=== PATIENT | male | born 1945 | race African-American/Black ===

== ENCOUNTER 2016-10-18 08:14 | Inpatient (IN) | payer OTHER, MEDICARE ==
[2016-10-18] VITALS (14 sets, daily range): BP systolic 125–193; BP diastolic 85–117; PULSE 61–112; RESP 17–36; TEMP 97.7–98.7; O2SAT 92–100
[~2016-10-18] VITALS: Ht 172.7 cm; Wt 72.0 kg
[~2016-10-18 08:14] MED LIST: ALBU8I INH; ASPI325T PO; CARV3.125 PO; FURO20 PO; KCL10C PO; LISI-360 PO; LISI10 PO; POTA-243 PO; PRAV20 PO; PRAV40 PO
[2016-10-18] MEDS ORDERED: SODIUM CHLOR 0.9% 1000 ML INJ 1,000 ML IV ONE (08:45)
[2016-10-18] MEDS ORDERED: methylPREDNISolone SOD SUCC 125 MG/2 ML VIAL IVP ONE (08:45)
--- NOTE | 2016-10-18 08:56 | PD ---
HPI Chief Complaint: Respiratory Distress Time Seen by Provider: 08:27 Travel History International Travel<30 days: No Contact w/Intl Traveler<30days: No Traveled to known affect area: No History of Present Illness HPI Patient is a 71-year-old male with history of COPD, Cardiomyopathy with ER 35% and hx of CHF, presents to emergency room with complaints of shortness of breath. Patient reports that he has been having increased shortness of breath for the past 2 days, reports that he has been coughing, reports that he is bringing up thick productive sputum. Reports that he has had increased nasal congestion with postnasal drip, reports that symptoms have been getting worse and patient felt as if he could not breathe this morning. Patient reports no fevers or chills. Denies chest pain at this time. Reports that he was a past smoker, reports "I quit smoking 2 days ago." PFSH Past Medical History Arthritis: Yes (KNEES, FINGERS) Heart Rhythm Problems: Yes (SOMETIMES FEELS "HEART RACING") Cardiovascular Problems: Yes COPD: Yes (HX SMOKER) Cerebrovascular Accident: Yes Diminished Hearing: No Hypertension: Yes Respiratory: Yes (COPD) Seizures: No Past Surgical History Abdominal Surgery: Yes ( Hernia repair - 2006) Neurologic Surgery: No Other Surgery: Yes Social History Alcohol Use: No Tobacco Use: No Substance Use: Yes (cocanie ) Allergies-Medications (Allergen,Severity, Reaction): Coded Allergies: No Known Allergies (Verified , 10/18/16) Reported Meds & Prescriptions Reported Meds & Active Scripts Active Lasix 20 Mg Tab (Furosemide) 20 Mg Tab 20 Mg PO DAILY 30 Days KCl 10 Meq Cap (Potassium Chloride) 10 Meq Capcr 10 Meq PO DAILY 30 Days Prinivil 10 mg (Lisinopril) 10 Mg Tab 10 Mg PO DAILY 30 Days Coreg 3.125 mg (Carvedilol) 3.125 Mg Tab 3.125 Mg PO Q12HR Pravastatin Sodium 40 Mg Tab 40 Mg PO HS Aspirin 325 Mg Tab (Aspirin) 325 Mg Tab 325 Mg PO DAILY Ventolin Hfa (Albuterol Sulfate) 8 Gm Aero 2 Puff INH Q4 PRN * SHAKE WELL BEFORE USE * Review of Systems General / Constitutional: No: Fever Eyes: No: Visual changes HENT: No: Headaches Cardiovascular: No: Chest Pain or Discomfort, Palpitations, Irregular Rhythm Respiratory: Positive: Cough, Shortness of Breath, Wheezing Gastrointestinal: No: Abdominal Pain Genitourinary: No: Dysuria Musculoskeletal: No: Pain Skin: No Rash Neurologic: No: Weakness Psychiatric: No: Depression Endocrine: No: Polydipsia Hematologic/Lymphatic: No: Easy Bruising Physical Exam Narrative GENERAL: mild distress SKIN: Warm and dry. HEAD: Atraumatic. Normocephalic. EYES: Pupils equal and round. No scleral icterus. No injection or drainage. ENT: No nasal bleeding or discharge. Mucous membranes pink and moist. NECK: Trachea midline. No JVD. CARDIOVASCULAR: tachycardic. No murmur appreciated. RESPIRATORY: patient with scattered wheezing b/l GASTROINTESTINAL: Abdomen soft, non-tender, nondistended. Hepatic and splenic margins not palpable. MUSCULOSKELETAL: No obvious deformities. No clubbing. No cyanosis. No edema. NEUROLOGICAL: Awake and alert. Normal speech. PSYCHIATRIC: Appropriate mood and affect; insight and judgment normal. Data Data Last Documented VS Vital Signs Date Time Temp Pulse Resp B/P Pulse Ox O2 Delivery O2 Flow Rate FiO2 10/18/16 09:53 96 Nasal Cannula 2.00 10/18/16 09:05 22 10/18/16 08:18 97.7 112 193/117 Orders Complete Blood Count With Diff (10/18/16 08:32) Comprehensive Metabolic Panel (10/18/16 08:32) B-Type Natriuretic Peptide (10/18/16 08:32) Act Partial Throm Time (Ptt) (10/18/16 08:32) Prothrombin Time / Inr (Pt) (10/18/16 08:32) Magnesium (Mg) (10/18/16 08:32) Ckmb (Isoenzyme) Profile (10/18/16 08:32) Troponin I (10/18/16 08:32) Urinalysis - C+S If Indicated (10/18/16 08:32) Influenzae A/B Antigen (10/18/16 08:32) Blood Culture (10/18/16 08:32) Iv Access Insert/Monitor (10/18/16 08:32) Ecg Monitoring (10/18/16 08:32) Oximetry (10/18/16 08:32) Chest, Single Ap (10/18/16 08:32) Sodium Chloride 0.9% Flush (Ns Flush) (10/18/16 08:45) Methylprednisolone So Succ Inj (Solumedr (10/18/16 08:45) Albuterol-Ipratropium Neb (Duoneb Neb) (10/18/16 08:45) Sodium Chlor 0.9% 1000 Ml Inj (Ns 1000 M (10/18/16 08:45) Lactic Acid Sepsis Protocol (10/18/16 08:56) CKMB (10/18/16 08:55) CKMB% (10/18/16 08:55) Azithromycin Inj (Zithromax Inj) (10/18/16 10:15) Ceftriaxone Inj (Rocephin Inj) (10/18/16 10:15) Aspirin (Aspirin) (10/18/16 10:15) Hydralazine Inj (Apresoline Inj) (10/18/16 10:45) Admit Order (Ed Use Only) (10/18/16 10:41) Inpatient Certification (10/18/16 ) Labs Laboratory Tests Test 10/18/16 10/18/16 10/18/16 08:55 09:05 09:53 White Blood Count 4.3 TH/MM3 Red Blood Count 4.68 MIL/MM3 Hemoglobin 15.4 GM/DL Hematocrit 45.8 % Mean Corpuscular Volume 97.8 FL Mean Corpuscular Hemoglobin 32.9 PG Mean Corpuscular Hemoglobin 33.7 % Concent Red Cell Distribution Width 14.4 % Platelet Count 210 TH/MM3 Mean Platelet Volume 11.2 FL Neutrophils (%) (Auto) 66.2 % Lymphocytes (%) (Auto) 25.5 % Monocytes (%) (Auto) 7.1 % Eosinophils (%) (Auto) 0.4 % Basophils (%) (Auto) 0.8 % Neutrophils # (Auto) 2.8 TH/MM3 Lymphocytes # (Auto) 1.1 TH/MM3 Monocytes # (Auto) 0.3 TH/MM3 Eosinophils # (Auto) 0.0 TH/MM3 Basophils # (Auto) 0.0 TH/MM3 CBC Comment AUTO DIFF Differential Comment AUTO DIFF CONFIRMED Platelet Estimate NORMAL Platelet Morphology Comment CLUMPED Sodium Level 140 MEQ/L Potassium Level 5.4 MEQ/L Chloride Level 103 MEQ/L Carbon Dioxide Level 27.6 MEQ/L Anion Gap 9 MEQ/L Blood Urea Nitrogen 13 MG/DL Creatinine 1.27 MG/DL Estimat Glomerular Filtration 68 ML/MIN Rate Random Glucose 107 MG/DL Calcium Level 8.9 MG/DL Magnesium Level 2.3 MG/DL Total Bilirubin 1.0 MG/DL Aspartate Amino Transf 184 U/L (AST/SGOT) Alanine Aminotransferase 198 U/L (ALT/SGPT) Alkaline Phosphatase 123 U/L Total Creatine Kinase 199 U/L Creatine Kinase MB 5.0 NG/ML Troponin I 0.11 NG/ML B-Type Natriuretic Peptide 2456 PG/ML Total Protein 7.7 GM/DL Albumin 3.5 GM/DL Lactic Acid Level 2.2 mmol/L Prothrombin Time 12.8 SEC Prothromb Time International 1.2 RATIO Ratio Activated Partial 29.9 SEC Thromboplast Time MDM Medical Decision Making Medical Screen Exam Complete: Yes Emergency Medical Condition: Yes Interpretation(s) EKG at 0831: Normal sinus rhythm at 80 beats for minute, QT/QTc 422/467, right bundle branch block, LVH, EKG unchanged when compared to March 02, 2016 Vital Signs Date Time Temp Pulse Resp B/P Pulse Ox O2 Delivery O2 Flow Rate FiO2 10/18/16 08:26 95 10/18/16 08:18 97.7 112 36 193/117 92 Room Air Differential Diagnosis Pneumonia, influenza, COPD exacerbation, electrolyte abnormality, PE Narrative Course Patient is a 71-year-old male with history of COPD exacerbation, presents to emergency room with complaints of shortness of breath and wheezing for the past 2 days. Patient reports that he stopped smoking 2 days ago, that he has been wheezing coughing and has had a productive cough for the past 2 days. Patient reports that he feel short of breath and cannot breathe at this time. Patient wheezing on exam, patient does have SIRS criteria as he is tachycardic with increased respiratory rate. Blood cultures ordered, nebs as well as albuterol treatments ordered. Laboratory Tests Test 10/18/16 10/18/16 08:55 09:05 White Blood Count 4.3 TH/MM3 (4.0-11.0) Red Blood Count 4.68 MIL/MM3 (4.50-5.90) Hemoglobin 15.4 GM/DL (13.0-17.0) Hematocrit 45.8 % (39.0-51.0) Mean Corpuscular Volume 97.8 FL (80.0-100.0) Mean Corpuscular Hemoglobin 32.9 PG (27.0-34.0) Mean Corpuscular Hemoglobin 33.7 % Concent (32.0-36.0) Red Cell Distribution Width 14.4 % (11.6-17.2) Platelet Count 210 TH/MM3 (150-450) Mean Platelet Volume 11.2 FL (7.0-11.0) Neutrophils (%) (Auto) 66.2 % (16.0-70.0) Lymphocytes (%) (Auto) 25.5 % (9.0-44.0) Monocytes (%) (Auto) 7.1 % (0.0-8.0) Eosinophils (%) (Auto) 0.4 % (0.0-4.0) Basophils (%) (Auto) 0.8 % (0.0-2.0) Neutrophils # (Auto) 2.8 TH/MM3 (1.8-7.7) Lymphocytes # (Auto) 1.1 TH/MM3 (1.0-4.8) Monocytes # (Auto) 0.3 TH/MM3 (0-0.9) Eosinophils # (Auto) 0.0 TH/MM3 (0-0.4) Basophils # (Auto) 0.0 TH/MM3 (0-0.2) CBC Comment AUTO DIFF Differential Comment AUTO DIFF CONFIRMED Platelet Estimate NORMAL (NORMAL) Platelet Morphology Comment CLUMPED (NORMAL) Sodium Level 140 MEQ/L (136-145) Potassium Level 5.4 MEQ/L (3.5-5.1) Chloride Level 103 MEQ/L (98-107) Carbon Dioxide Level 27.6 MEQ/L (21.0-32.0) Anion Gap 9 MEQ/L (5-15) Blood Urea Nitrogen 13 MG/DL (7-18) Creatinine 1.27 MG/DL (0.60-1.30) Estimat Glomerular Filtration 68 ML/MIN (>89) Rate Random Glucose 107 MG/DL (74-106) Calcium Level 8.9 MG/DL (8.5-10.1) Magnesium Level 2.3 MG/DL (1.5-2.5) Total Bilirubin 1.0 MG/DL (0.2-1.0) Aspartate Amino Transf 184 U/L (15-37) (AST/SGOT) Alanine Aminotransferase 198 U/L (12-78) (ALT/SGPT) Alkaline Phosphatase 123 U/L (45-117) Total Creatine Kinase 199 U/L (39-308) Creatine Kinase MB 5.0 NG/ML (0.5-3.6) Troponin I 0.11 NG/ML (0.02-0.05) B-Type Natriuretic Peptide 2456 PG/ML (0-100) Total Protein 7.7 GM/DL (6.4-8.2) Albumin 3.5 GM/DL (3.4-5.0) Lactic Acid Level 2.2 mmol/L (0.4-2.0) Patient reevaluated, patient reports that he is feeling much better after neb is given to him. CBC White blood cell 4.3, hemoglobin 15.4 hematocrit 45.8, platelets 210 lactic acid 2.2 chest xray: no infiltrates trop 0.11- patient with no chest pain at this time, EKG comparable to previous EKGs in the past. Will give patient asa and order serial trops case reviewed with dr salmon who accepts pt to service pt's belt builder is Dr. Munoz case reviewed with dr. sevilla who saw patient in consult pt began to become sob and diaphoretic, bipap placed, nitro paste placed call made to dr. salmon who request ICU admission and admission to [facility] spa manager case reviewed with dr raymond who accepts pt to service pt re-evaluated after being on bipap - reports that he is feeling much better on bipap and sob improving Critical Care Narrative Aggregate critical care time was 45 minutes. Time to perform other separately billable procedures was not included in the critical care time. My time did not include minutes spent treating any other patients simultaneously or on activities that did not directly contribute to the patient's treatment. The services I provided to this patient were to treat and/or prevent clinically significant deterioration that could result in: , decompensation, deterioration I provided critical care services requiring my management, as noted below: Chart data review, documentation time, medication orders and management, vital sign assessments/reviewing monitor data, ordering and reviewing lab tests, ordering and interpreting/reviewing x-rays and diagnostic studies, care of the patient and discussion of the patient with the admitting physicians. Diagnosis Primary Impression: SIRS (systemic inflammatory response syndrome) Additional Impressions: COPD exacerbation Positive Troponin CHF (congestive heart failure) Admitting Information Admitting Physician Requests: Admit Jodi Somers DO Oct 18, 2016 08:56
--- NOTE | 2016-10-18 09:08 | RADRPT ---
EXAM DATE/TIME: 10/18/2016 08:40 [facility] COMPARISON: CHEST PA & LAT, December 05, 2013, 12:32. CHEST SINGLE AP, March 02, 2016, 9:11. INDICATIONS : Shortness of breath for two days. MEDICAL HISTORY : Emphysema. SURGICAL HISTORY : None. ENCOUNTER: Initial ACUITY: 2 days PAIN SCORE: 0/10 LOCATION: Bilateral chest FINDINGS: The heart size is enlarged. There some minimal suspected atelectasis at the bases. The mid and upper lungs are clear. The lungs appear hyperinflated. No effusion is seen. There is a dextrocurvature of t he thoracic spine. CONCLUSION: Hyperinflated lungs with some suspected atelectasis at the bases. The heart size is enlarged. John Trevino MD on October 18, 2016 at 9:05 Board Certified Radiologist. This report was verified electronically.
[2016-10-18] MEDS: SODIUM CHLORIDE 0.9% FLUSH 5 ML FLUSH IVF PRN (09:11)
[2016-10-18 09:33] LABS: AUTOMATED NEUTROPHIL # 2.8 TH/MM3 (1.8-7.7); BASOPHIL % 0.8 % (0.0-2.0); EOSINOPHIL % 0.4 % (0.0-4.0); HEMATOCRIT 45.8 % (39.0-51.0); LYMPH % 25.5 % (9.0-44.0); LYMPHOCYTE # 1.1 TH/MM3 (1.0-4.8); MEAN CELL VOLUME 97.8 FL (80.0-100.0); MEAN CORPUSCULAR HEMOGLOBIN 32.9 PG (27.0-34.0); MEAN CORPUSCULAR HGB CONC 33.7 % (32.0-36.0); MONO % 7.1 % (0.0-8.0); NEUT % 66.2 % (16.0-70.0); PLATELET COUNT 210 TH/MM3 (150-450); RED BLOOD COUNT 4.68 MIL/MM3 (4.50-5.90); RED CELL DISTRIBUTION WIDTH 14.4 % (11.6-17.2); WHITE BLOOD COUNT 4.3 TH/MM3 (4.0-11.0)
[2016-10-18 09:34] LABS: HEMO FLAGS AUTO DIFF
[2016-10-18 09:52] LABS: ANION GAP 9 MEQ/L (5-15)
[2016-10-18] MEDS: RESP: ALBUTEROL 2.5 MG/IPRATROPIUM 0.5 MG NEB (SCH) INH ×4 (09:53→23:43)
[2016-10-18 09:54] LABS: ALKALINE PHOSPHATASE 123 U/L (45-117); ALT (GPT) 198 U/L (12-78); AST (GOT) 184 U/L (15-37); BICARBONATE 27.6 MEQ/L (21.0-32.0); BLOOD UREA NITROGEN 13 MG/DL (7-18); CHLORIDE 103 MEQ/L (98-107); CREATINE KINASE 199 U/L (39-308); GLOMERULAR FILTRATION RATE 68 ML/MIN (>89); MAGNESIUM 2.3 MG/DL (1.5-2.5); SODIUM (NA) 140 MEQ/L (136-145)
[2016-10-18 09:55] LABS: POTASSIUM 5.4 MEQ/L (3.5-5.1)
[2016-10-18 10:05] LABS: PLATELET ESTIMATE SMEAR NORMAL (NORMAL); PLATELET MORPHOLOGY CLUMPED (NORMAL); SCAN/DIFF AUTO DIFF CONFIRMED
[2016-10-18] MEDS ORDERED: cefTRIAXone INJ 1,000 MG in SODIUM CHLORIDE 0.9% INJ 100 ML IV ONE (10:15)
[2016-10-18] MEDS ORDERED: ASPIRIN 325 MG TAB PO ONE (10:15)
[2016-10-18] MEDS ORDERED: AZITHROMYCIN INJ 500 MG in SODIUM CHLOR 0.9% 250 ML INJ 250 ML IV ONE (10:15)
[2016-10-18 10:25] LABS: APTT (PATIENT) 29.9 SEC (24.3-30.1); INTERNATIONAL NORMALIZED RATIO 1.2 RATIO; PROTHROMBIN TIME - PATIENT 12.8 SEC (9.8-11.6)
[2016-10-18] MEDS ORDERED: hydrALAZINE HCL 20 MG/ML VIAL IV PUSH ONE (10:45)
[2016-10-18 11:23] LABS: BLOOD, URINE NEG (NEG); COMMENT (UR) CULT NOT INDICATED; CULTURE IF INDICATED CULT NOT INDICATED; GLUCOSE,URINE NEG (NEG); KETONE, URINE NEG (NEG); MUCUS URINE FEW /lpf (OCC); NITRITE,URINE NEG (NEG); PH, URINE 5.5 (5.0-8.5); URINE COLOR YELLOW (YELLW/STRAW)
[2016-10-18 11:24] LABS: LACTIC ACID GHOST NOT REPORTABLE
[2016-10-18] MEDS ORDERED: NITROGLYCERIN 2% OINT 1 GM PACKET TOP ONE (11:30)
[2016-10-18] MEDS ORDERED: FUROSEMIDE 40 MG/4 ML VIAL IV PUSH ONE (11:30)
[2016-10-18] MEDS ORDERED: POTASSIUM CHLOR 40 MEQ PREMIX 100 ML IV PRN ×2 (12:15)
[2016-10-18] MEDS ORDERED: MAGNESIUM SULFATE INJ 4 GM in SODIUM CHLORIDE 0.9% INJ 92 ML IV PRN (12:15)
[2016-10-18] MEDS ORDERED: DEXTROSE 50% IN WATER 50 ML VIAL(D50) IV PUSH PRN (12:15)
[2016-10-18] MEDS ORDERED: LABETALOL HCL 100 MG/20 ML VIAL IV PUSH PRN (12:15)
[2016-10-18] MEDS ORDERED: POTASSIUM CHLOR 20 MEQ PREMIX 100 ML IV PRN ×2 (12:15)
[2016-10-18] MEDS ORDERED: MAGNESIUM SULFATE INJ 2 GM in SODIUM CHLORIDE 0.9% INJ 96 ML IV PRN (12:15)
[2016-10-18] MEDS ORDERED: hydrALAZINE HCL 20 MG/ML VIAL IV PUSH PRN (12:15)
[2016-10-18] MEDS ORDERED: FUROSEMIDE 100 MG/10 ML VIAL IV PUSH ONE (12:15)
[2016-10-18] MEDS ORDERED: SODIUM PHOSPHATE INJ 30 MMOL in SODIUM CHLOR 0.9% 250 ML INJ 240 ML IV PRN (12:15)
[2016-10-18] MEDS ORDERED: MAGNESIUM OXIDE 400 MG TAB PO PRN (12:15)
[2016-10-18] MEDS ORDERED: POTASSIUM PHOSPHATE MONOBASIC 500 MG TAB PO/TUBE PRN (12:15)
[2016-10-18] MEDS ORDERED: POTASSIUM PHOSPHATE MONOBASIC 500 MG TAB PO PRN (12:15)
[2016-10-18] MEDS ORDERED: RESP: ALBUTEROL 2.5 MG/IPRATROPIUM 0.5 MG NEB (PRN) INH (12:15)
[2016-10-18] MEDS ORDERED: POTASSIUM PHOSPHATE INJ 30 MMOL in SODIUM CHLOR 0.9% 250 ML INJ 250 ML IV PRN (12:15)
[2016-10-18 12:36] LABS: BLOOD GAS BASE EXCESS -1.5 mmol/L (-2-2); BLOOD GAS CARBOXYHEMOGLOBIN 1.5 % (0-4); BLOOD GAS HCO3 22 mmol/L (22-26); BLOOD GAS METHEMOGLOBIN 0.5 % (0-2); BLOOD GAS O2 HGB SATURATION 97 % (90-100); BLOOD GAS OXYGEN CONTENT 20.6 Vol % (12.0-20.0); BLOOD GAS PCO2 32 mmHg (38-42); BLOOD GAS PO2 147 mmHG (61-120); BLOOD GAS TOTAL HGB 14.9 G/DL (12.0-16.0); CRITICAL VALUE NO; DRAW SITE RT RADIAL; FIO2 40 %; NUMBER OF ARTERIAL PUNCTURES 1; OXYGEN DEVICE BiPAP; STAT YES; TEMP CORR TO 98.6; ULNAR PULSE PRESENT; VENT SETTINGS IPAP15/EPAP5
--- NOTE | 2016-10-18 12:36 | MB ---
cc: HEBER LUNA MD DATE OF CONSULTATION: 10/18/2016 REASON FOR CONSULTATION: CHF. HISTORY OF PRESENT ILLNESS The patient is a pleasant though troubled 71 year-old gentleman who I had previously seen though he was terminated from my practice due to noncompliance and continued drug use. The patient presents again after using cocaine on Wednesday and has been acutely short of breath since yesterday. He denies any chest pain, lightheadedness, dizziness. PAST MEDICAL HISTORY: 1. Drug abuse 2. Nonischemic cardiomyopathy with ejection fraction from last December in the 30s with no evidence of ischemia. 3. Ventricular tachycardia. 4. COPD. 5. Atrial fibrillation. 6. Noncompliance. CURRENT MEDICATIONS: IV Lasix ALLERGIES: NO KNOWN DRUG ALLERGIES. PHYSICAL EXAMINATION VITAL SIGNS: Afebrile, pulse 104, respiratory rate 20, blood pressure 193/117, sating 94 on two liters. General: -Turkmen gentleman who is in moderate respiratory distress. Neck: Elevated JVD. Lungs: Wheezes in all [place]. Cardiovascular: Regular rate and rhythm, no murmurs appreciated. Abdomen: Benign. Extremities: No edema. EKG shows sinus tachycardia with LVH changes, left axis deviation and right bundle-branch block. LABORATORY DATA Notable for BNP is 2456, elevated AST, ALT, troponin is 0.11, potassium of 5.4, creatinine 1.27, white count 4.3. IMPRESSION Diastolic heart failure. The patient has acute on chronic systolic and diastolic heart failure exacerbated by his recent cocaine use. He has been given Lasix after initial fluid bolus in the emergency department before his clinical condition was clear. Nitrates were also given. He may require intubation. He is currently on BiPAP. PLAN: Current plan will be based on his clinical course but his prognosis is extremely guarded based on his prior events and low ejection fraction. Thank you again for the opportunity to participate in this patient's care. Heber Luna MD [facility]/[place] /10:33 AM /11:27 AM
--- NOTE | 2016-10-18 12:39 | HHI.HP ---
[facility] Service Critical Care Medicine Primary Care Physician Non-Staff Admission Diagnosis SIRS, NSTEMI Diagnosis: Chief Complaint: shortness of breath Travel History International Travel<30 Days: No Contact w/Intl Traveler <30 Da: No Traveled to Known Affected Are: No History of Present Illness 71yM with history of ischemic cardiomyopathy and an EF of 30-35% who has been repeatedly admitted to [facility] before for CHF exacerbation presents with a few weeks of progressively worsening shortness of breath. He denies fever, chills, chest pain, nausea, vomiting, diarrhea. He is quite dyspneic and currently on BiPAP, so a complete history is unobtainable. He was lost to follow-up after his last CHF exacerbation and does not have repeat echo for possible AICD work-up. Work-up in the ED include Cr. 1.2, Lactate 2.2, AST/ALT 184/198, Trop 0.11, BNP 2456, wbc 4.3, hgb 15. He received 1 L fluid bolus for early concern for possible sepsis. Critical care medicine is consulted to evaluate and manage his Type II respiratory failure and respiratory distress. Review of Systems ROS Limitations: Clinical Condition Constitutional: COMPLAINS OF: Weight gain, DENIES: Fatigue, Fever, Chills Respiratory: COMPLAINS OF: Shortness of breath, DENIES: Cough, Wheezing, Sputum production Cardiovascular: COMPLAINS OF: Dyspnea on Exertion, Lower Extremity Edema, DENIES: Chest pain, Syncope Gastrointestinal: DENIES: Abdominal pain, Constipation, Diarrhea, Nausea, Vomiting ROS patient extremely dyspneic on BiPAP. Past Family Social History Allergies: Coded Allergies: No Known Allergies (Verified , 10/18/16) Past Medical History Arthritis Ischemic Cardiomyopathy, EF 30-35%. COPD CVA Past Surgical History Hernia repair 2006 Reported Medications Pravastatin Sodium 20 Mg Tab 40 Mg PO DAILY 30 Days Coreg 3.125 mg (Carvedilol) 3.125 Mg Tab 1 Tab PO BID Aspirin 325 Mg Tab (Aspirin) 325 Mg Tab 325 Mg PO DAILY 30 Days Lisinopril 10 mg (Lisinopril) 10 Mg Tab 1 Tab PO DAILY 30 Days Lasix 20 Mg Tab (Furosemide) 20 Mg Tab 20 Mg PO DAILY 30 Days KCl 10 Meq Cap (Potassium Chloride) 10 Meq Capcr 10 Meq PO DAILY 30 Days K-Dur (Potassium Chloride) 10 Meq Tabcr 10 Meq PO DAILY 30 Days Prinivil 10 mg (Lisinopril) 10 Mg Tab 10 Mg PO DAILY 30 Days Lasix 20 Mg Tab (Furosemide) 20 Mg Tab 20 Mg PO DAILY 30 Days Coreg 3.125 mg (Carvedilol) 3.125 Mg Tab 3.125 Mg PO Q12HR Pravastatin Sodium 40 Mg Tab 40 Mg PO HS Aspirin 325 Mg Tab (Aspirin) 325 Mg Tab 325 Mg PO DAILY Ventolin Hfa (Albuterol Sulfate) 8 Gm Aero 2 Puff INH Q4 PRN Active Ordered Medications See MAR Family History Reviewed and found to be noncontributory to his acute illness. Social History prior smoking history. cocaine use. denies etoh. Physical Exam Vital Signs Vital Signs Date Time Temp Pulse Resp B/P Pulse Ox O2 Delivery O2 Flow Rate FiO2 10/18/16 11:33 22 97 BiPAP 40 10/18/16 11:30 98 40 10/18/16 10:51 104 26 183/117 94 Nasal Cannula 2 10/18/16 09:53 96 Nasal Cannula 2.00 10/18/16 09:05 94 Room Air 10/18/16 09:05 22 94 Room Air 10/18/16 08:26 95 10/18/16 08:18 97.7 112 36 193/117 92 Room Air Physical Exam gen: elderly male, lying in bed, moderate respiratory distress. heent: nc. at. perrl. mucous membranes moist. neck: +jvd. trachea midline. bipap in place. chest: labored respirations. decreased air movement. crackles at bilateral bases. no wheezing. cv: normal rate, regular rhythm. NSR by tele. no appreciable murmurs abd: soft, nontender, nondistended. no guarding. extr: 2+ pitting edema. distal pulses 2+ neuro: RASS 0. cam -. alert and oriented. no gross focal motor/sensory deficits. Laboratory Laboratory Tests Test 10/18/16 10/18/16 10/18/16 10/18/16 08:55 09:05 09:53 11:00 White Blood Count 4.3 Red Blood Count 4.68 Hemoglobin 15.4 Hematocrit 45.8 Mean Corpuscular Volume 97.8 Mean Corpuscular Hemoglobin 32.9 Mean Corpuscular Hemoglobin 33.7 Concent Red Cell Distribution Width 14.4 Platelet Count 210 Mean Platelet Volume 11.2 Neutrophils (%) (Auto) 66.2 Lymphocytes (%) (Auto) 25.5 Monocytes (%) (Auto) 7.1 Eosinophils (%) (Auto) 0.4 Basophils (%) (Auto) 0.8 Neutrophils # (Auto) 2.8 Lymphocytes # (Auto) 1.1 Monocytes # (Auto) 0.3 Eosinophils # (Auto) 0.0 Basophils # (Auto) 0.0 CBC Comment AUTO DIFF Differential Comment AUTO DIFF CONFIRMED Platelet Estimate NORMAL Platelet Morphology Comment CLUMPED Sodium Level 140 Potassium Level 5.4 Chloride Level 103 Carbon Dioxide Level 27.6 Anion Gap 9 Blood Urea Nitrogen 13 Creatinine 1.27 Estimat Glomerular Filtration 68 Rate Random Glucose 107 Calcium Level 8.9 Magnesium Level 2.3 Total Bilirubin 1.0 Aspartate Amino Transf 184 (AST/SGOT) Alanine Aminotransferase 198 (ALT/SGPT) Alkaline Phosphatase 123 Total Creatine Kinase 199 Creatine Kinase MB 5.0 Troponin I 0.11 B-Type Natriuretic Peptide 2456 Total Protein 7.7 Albumin 3.5 Lactic Acid Level 2.2 Prothrombin Time 12.8 Prothromb Time International 1.2 Ratio Activated Partial 29.9 Thromboplast Time Urine Color YELLOW Urine Turbidity CLEAR Urine pH 5.5 Urine Specific [place] 1.020 Urine Protein 30 Urine Glucose (UA) NEG Urine Ketones NEG Urine Occult Blood NEG Urine Nitrite NEG Urine Bilirubin NEG Urine Urobilinogen LESS THAN 2.0 Urine Leukocyte Esterase NEG Urine RBC LESS THAN 1 Urine WBC 1 Urine Mucus FEW Microscopic Urinalysis Comment CULT NOT INDICATED Date/Time Procedure Status Source Growth 10/18/16 09:00 Aerobic Blood Culture Received Blood Peripheral Pending 10/18/16 09:00 Anaerobic Blood Culture Received Blood Peripheral Pending 10/18/16 08:55 Influenza Types A,B Antigen (JACY) - Final Complete Nasal Aspirate NEGATIVE FOR FLU A AND B ANTIGEN.... Result Diagram: 10/18/1685410/18/16 0855 Assessment and Plan Assessment and Plan Assessment: 71yM with known ICM EF 30-35% now with respiratory distress and CHF exacerbation. I think his lactate and transaminitis are reflective of congestive hepatopathy and early cardiogenic shock and are not related to sepsis. We will not cover him empirically with antibiotics. We will pursue forced diuresis with goal of net - 2-3L over next 24h. Continue biPAP to attempt to avoid intubation for hypoxic respiratory failure. I do think it is reasonable to reconsult cardiology with a recent echocardiogram so they may complete work-up for possible AICD placement, since he was lost to follow-up on prior admission. Plan: 1. Hypoxic Respiratory Failure -- BiPAP -- wean fio2 for goal spo2 > 90% -- hob at 30 degrees -- aggressive pulmonary toilet. 2. Systolic CHF exacerbation -- Lasix 80mg iv x 1 now -- Lasix 40mg iv BID -- goal net negative 2-3L over the next 24h -- repeat 2d echo -- consult cardiology to eval for AICD placement 3. Hypertension -- restart home carvedilol -- hold home lisinopril given bump in Cr. if normalizes tomorrow, would plan to restart -- prn hydralazine, labetalol for goal sbp < 160 4. COPD -- home inhalers -- I do not think this is a copd exacerbation, so we will not pursue steroids 5. Lactic acidosis -- likely early congestive hepatopathy and cardiogenic shock. after diuresis, will recheck 6. Elevated LFTs -- likely early congestive hepatopathy. recheck in AM. 7. Hyperlipidemia -- restart statin 8. SCDs and Lovenox for DVT prophylaxis. 9. No indication for GI prophylaxis at this time. Dispo: admit to the ICU. If he diuresis appropriately, would consider downgrading to floor status with hospitalist following. Code Status Full Code Alberto Palomares MD Oct 18, 2016 12:39
[2016-10-18] MEDS ORDERED: CARVEDILOL 3.125 MG TAB PO SCH (13:00)
[2016-10-18] MEDS ORDERED: CARV3.125 PO (13:27)
[2016-10-18] MEDS ORDERED: LISI10TA3 PO (13:27)
[2016-10-18] MEDS ORDERED: ALBUAER3 INH (13:27)
[2016-10-18] MEDS ORDERED: K-TA10TA PO (13:27)
[2016-10-18] MEDS ORDERED: FURO1TAB62 PO (13:27)
[2016-10-18] MEDS ORDERED: ASPI325T PO (13:27)
[2016-10-18] MEDS: ENOXAPARIN SODIUM 40 MG/0.4 ML SYRINGE SQ SCH (13:48)
[2016-10-18 17:57] LABS: MAGNESIUM 2.1 MG/DL (1.5-2.5)
[2016-10-18 17:58] LABS: POTASSIUM 4.6 MEQ/L (3.5-5.1)
[2016-10-18] MEDS: FUROSEMIDE 40 MG/4 ML VIAL IV PUSH SCH (19:03)
[2016-10-18] MEDS: INSULIN NovoLIN REGULAR SUPPLEMENTAL SCALE SQ SCH (19:04)
[2016-10-18] MEDS ORDERED: PRAVASTATIN SOD 40 MG TAB PO SCH (21:00)
[2016-10-18] MEDS: CARVEDILOL 3.125 MG TAB PO SCH (21:02)
[2016-10-19] VITALS (16 sets, daily range): BP systolic 120–141; BP diastolic 63–82; PULSE 53–91; RESP 16–26; TEMP 97.3–98.3; O2SAT 92–100
[2016-10-19] MEDS: INSULIN NovoLIN REGULAR SUPPLEMENTAL SCALE SQ SCH ×5 (00:21→23:18)
[2016-10-19] MEDS: RESP: ALBUTEROL 2.5 MG/IPRATROPIUM 0.5 MG NEB (SCH) INH ×6 (03:27→23:23)
--- NOTE | 2016-10-19 04:13 | RADRPT ---
EXAM DATE/TIME: 10/19/2016 01:47 [facility] COMPARISON: CHEST SINGLE AP, October 18, 2016, 8:40. INDICATIONS : Shortness of breath, possible pulmonary disease. MEDICAL HISTORY : Emphysema. SURGICAL HISTORY : None. ENCOUNTER: Subsequent ACUITY: 2 days PAIN SCORE: 0/10 LOCATION: Bilateral chest FINDINGS: Single AP view of the chest. The lungs are clear. Mildly enlarged cardiac silhouette unchanged. No ev idence of pleural effusion or pneumothorax. CONCLUSION: Persistent cardiac silhouette enlargement. Lungs grossly clear. Ivan Elizalde MD on October 19, 2016 at 4:07 Board Certified Radiologist. This report was verified electronically.
[2016-10-19 06:31] LABS: BLOOD GAS BASE EXCESS 4.2 mmol/L (-2-2); BLOOD GAS CARBOXYHEMOGLOBIN 1.4 % (0-4); BLOOD GAS HCO3 29 mmol/L (22-26); BLOOD GAS O2 HGB SATURATION 94 % (90-100); BLOOD GAS OXYGEN CONTENT 18.4 Vol % (12.0-20.0); BLOOD GAS PCO2 48 mmHg (38-42); BLOOD GAS PO2 89 mmHg (61-120); BLOOD GAS TOTAL HGB 13.9 G/DL (12.0-16.0); CRITICAL VALUE NO; LITER FLOW 1 L/M; OXYGEN DEVICE NASAL CANNULA; TEMP CORR TO 98.6
[2016-10-19 06:32] LABS: DRAW SITE RT RADIAL; FIO2 24 %; NUMBER OF ARTERIAL PUNCTURES 1; STAT NO; ULNAR PULSE PRESENT
[2016-10-19 08:15] LABS: HEMATOCRIT 42.3 % (39.0-51.0); MEAN CELL VOLUME 98.2 FL (80.0-100.0); MEAN CORPUSCULAR HEMOGLOBIN 32.5 PG (27.0-34.0); MEAN CORPUSCULAR HGB CONC 33.1 % (32.0-36.0); PLATELET COUNT 173 TH/MM3 (150-450); RED BLOOD COUNT 4.31 MIL/MM3 (4.50-5.90); RED CELL DISTRIBUTION WIDTH 14.2 % (11.6-17.2); REVIEW FLAG FINAL; WHITE BLOOD COUNT 10.4 TH/MM3 (4.0-11.0)
--- NOTE | 2016-10-19 08:17 | HHI.PR ---
Subjective Remarks feeling better no chest pains or shortness of breath at rest admits to non compliance Objective Vitals Vital Signs Date Time Temp Pulse Resp B/P Pulse Ox O2 Delivery O2 Flow Rate FiO2 10/19/16 06:00 61 10/19/16 04:00 98.2 74 24 120/79 95 10/19/16 04:00 74 10/19/16 02:00 79 10/19/16 00:00 80 10/19/16 00:00 98.3 80 26 127/63 96 10/18/16 22:00 86 10/18/16 20:00 98.5 92 26 125/85 100 10/18/16 20:00 92 10/18/16 19:43 99 Nasal Cannula 2.00 10/18/16 18:00 78 10/18/16 16:00 73 10/18/16 16:00 98.4 73 20 148/104 96 10/18/16 14:30 98.7 77 24 156/96 98 10/18/16 14:30 61 10/18/16 12:30 81 17 154/99 97 BiPAP 40 10/18/16 11:33 22 97 BiPAP 40 10/18/16 11:30 98 40 10/18/16 10:51 104 26 183/117 94 Nasal Cannula 2 10/18/16 09:53 96 Nasal Cannula 2.00 10/18/16 09:05 94 Room Air 10/18/16 09:05 22 94 Room Air 10/18/16 08:26 95 10/18/16 08:18 97.7 112 36 193/117 92 Room Air I/O 10/18/16 10/18/16 10/18/16 10/19/16 10/19/16 10/19/16 07:00 15:00 23:00 07:00 15:00 23:00 Intake Total 400 ml 240 ml Output Total 1600 ml 2100 ml 300 ml Balance -1600 ml -1700 ml -60 ml Intake Oral 400 ml 240 ml Output Urine Total 1600 ml 2100 ml 300 ml # Voids 3 Result Diagram: 10/18/16 0855 10/18/16 1653 Imaging Last Impressions Chest X-Ray 10/18/16 0832 Signed Impressions: Service Date/Time: Tuesday, October 18, 2016 08:40 - CONCLUSION: Hyperinflated lungs with some suspected atelectasis at the bases. The heart size is enlarged. John Trevino MD Objective Remarks awake and alert, NAD anicteric lungs decrease breath sounds bases, no rales or wheezes regular rhythm abdomen soft, nontender, good bowel sounds extremities no edema neuro exam- non focal A/P Assessment and Plan 1. Acute Hypoxic Respiratory Failure- from CHF - resolved - ff 02 sat- - will check Sats on room air- 2. Systolic CHF exacerbation- check EF -- Lasix 40mg iv BID, On Coreg -- goal net negative 2-3L over the next 24h -- 2D echo ordered-- pending -- consider adding MELI if decrease EF- awaiting ECho - Cardiology ff- Dr. Luna -Increase activity gradually 3. Hypertension -- restarted home carvedilol -- MELI- if renal functions stable and decrease EF -- prn hydralazine, labetalol for goal sbp < 160 4. COPD -- home inhalers -doubt this is COPD exacerbation 5. Lactic acidosis -- likely early congestive hepatopathy and cardiogenic shock. after diuresis, will recheck 6. 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 recheck in AM. 7. Hyperlipidemia -- statin- ff LFTs 8. SCDs and Lovenox for DVT prophylaxis. Increaese 9. substance abuse- counselled Awaiting telemetry bed Donny Ferrera MD Oct 19, 2016 08:17
[2016-10-19 08:29] LABS: BICARBONATE 30.9 MEQ/L (21.0-32.0); POTASSIUM 4.6 MEQ/L (3.5-5.1)
[2016-10-19 08:35] LABS: INDIRECT BILIRUBIN 0.3 MG/DL (0.0-0.8); TOTAL BILIRUBIN ADULT 0.4 MG/DL (0.2-1.0)
[2016-10-19] MEDS: FUROSEMIDE 40 MG/4 ML VIAL IV PUSH SCH (08:57)
[2016-10-19] MEDS: CARVEDILOL 3.125 MG TAB PO SCH (08:57)
[2016-10-19] MEDS: ASPIRIN 325 MG TAB PO SCH (08:57)
[2016-10-19] MEDS ORDERED: FUROSEMIDE 40 MG/4 ML VIAL IV PUSH SCH (09:00)
--- NOTE | 2016-10-19 09:12 | PD.CARD.PN ---
Subjective Subjective Remarks Diuresed, now feeling much better Objective Medications Administered Medications Medications (Trade) Dose Ordered Sig/Margoth Route PRN Reason Start Time Stop Time Status Last Admin Dose Admin IV Flush (NS Flush) 2 ml UNSCH PRN IVF FLUSH AFTER USING IV ACCESS 10/18/16 08:45 10/18/16 09:11 Furosemide (Lasix Inj) 40 mg BID@09,18 IV PUSH 10/18/16 18:00 10/19/16 08:57 Aspirin (Aspirin) 325 mg DAILY PO 10/19/16 09:00 10/19/16 08:57 Insulin Human Regular (NovoLIN R SUPPLEMENTAL SCALE) 1 Q6HR SQ 10/18/16 18:00 10/19/16 00:21 Enoxaparin Sodium (Lovenox Inj) 40 mg Q24H SQ 10/18/16 13:00 10/18/16 13:48 Carvedilol (Coreg) 6.25 mg Q12HR PO 10/18/16 21:00 10/19/16 08:57 Vital Signs / I&O Vital Signs Date Time Temp Pulse Resp B/P Pulse Ox O2 Delivery O2 Flow Rate FiO2 10/19/16 06:00 61 10/19/16 04:00 98.2 74 24 120/79 95 10/19/16 04:00 74 10/19/16 02:00 79 10/19/16 00:00 80 10/19/16 00:00 98.3 80 26 127/63 96 10/18/16 22:00 86 10/18/16 20:00 98.5 92 26 125/85 100 10/18/16 20:00 92 10/18/16 19:43 99 Nasal Cannula 2.00 10/18/16 18:00 78 10/18/16 16:00 73 10/18/16 16:00 98.4 73 20 148/104 96 10/18/16 14:30 98.7 77 24 156/96 98 10/18/16 14:30 61 10/18/16 12:30 81 17 154/99 97 BiPAP 40 10/18/16 11:33 22 97 BiPAP 40 10/18/16 11:30 98 40 10/18/16 10:51 104 26 183/117 94 Nasal Cannula 2 10/18/16 09:53 96 Nasal Cannula 2.00 10/18/16 09:05 94 Room Air 10/18/16 09:05 22 94 Room Air I/O 10/18/16 10/18/16 10/18/16 10/19/16 10/19/16 10/19/16 07:00 15:00 23:00 07:00 15:00 23:00 Intake Total 400 ml 240 ml Output Total 1600 ml 2100 ml 300 ml Balance -1600 ml -1700 ml -60 ml Intake Oral 400 ml 240 ml Output Urine Total 1600 ml 2100 ml 300 ml # Voids 3 Physical Exam GENERAL: This is a well-nourished, well-developed patient, in no apparent distress. CARDIOVASCULAR: Regular rate and rhythm without murmurs, gallops, or rubs. RESPIRATORY: Clear to auscultation. Breath sounds equal bilaterally. No wheezes , rales, or rhonchi. GASTROINTESTINAL: Abdomen soft, non-tender, nondistended. Normal active bowel sounds MUSCULOSKELETAL: Extremities without clubbing, cyanosis, or edema. NEURO: Alert & Oriented x4 to person, place, time, situation. Moves all ext x4 Laboratory Laboratory Tests Test 10/18/16 10/18/16 10/18/16 10/18/16 09:05 09:53 11:00 12:06 Lactic Acid Level 2.2 mmol/L 2.2 mmol/L Prothrombin Time 12.8 SEC Prothromb Time International 1.2 RATIO Ratio Activated Partial 29.9 SEC Thromboplast Time Urine Color YELLOW Urine Turbidity CLEAR Urine pH 5.5 Urine Specific [place] 1.020 Urine Protein 30 mg/dL Urine Glucose (UA) NEG mg/dL Urine Ketones NEG mg/dL Urine Occult Blood NEG Urine Nitrite NEG Urine Bilirubin NEG Urine Urobilinogen LESS THAN 2.0 MG/DL Urine Leukocyte Esterase NEG Urine RBC LESS THAN 1 /hpf Urine WBC 1 /hpf Urine Mucus FEW /lpf Microscopic Urinalysis Comment CULT NOT INDICATED Troponin I 0.06 NG/ML Test 10/18/16 10/18/16 10/19/16 10/19/16 12:23 16:53 06:22 07:48 Blood Gas Puncture Site RT RADIAL RT RADIAL Blood Gas Patient Temperature 98.6 98.6 Blood Gas HCO3 22 mmol/L 29 mmol/L Blood Gas Base Excess -1.5 mmol/L 4.2 mmol/L Blood Gas Oxygen Saturation 97 % 94 % Arterial Blood pH 7.45 7.40 Arterial Blood Partial 32 mmHg 48 mmHg Pressure CO2 Arterial Blood Partial 147 mmHG 89 mmHg Pressure O2 Arterial Blood Oxygen Content 20.6 Vol % 18.4 Vol % Arterial Blood 1.5 % 1.4 % Carboxyhemoglobin Arterial Blood Methemoglobin 0.5 % 1.0 % Blood Gas Hemoglobin 14.9 G/DL 13.9 G/DL Oxygen Delivery Device BiPAP NASAL CANNULA Blood Gas Ventilator Setting [id number] Blood Gas Inspired Oxygen 40 % 24 % Sodium Level 139 MEQ/L 141 MEQ/L Potassium Level 4.6 MEQ/L 4.6 MEQ/L Chloride Level 104 MEQ/L 103 MEQ/L Carbon Dioxide Level 24.0 MEQ/L 30.9 MEQ/L Anion Gap 11 MEQ/L 7 MEQ/L Blood Urea Nitrogen 15 MG/DL 23 MG/DL Creatinine 1.24 MG/DL 1.28 MG/DL Estimat Glomerular Filtration 70 ML/MIN 67 ML/MIN Rate Random Glucose 159 MG/DL 91 MG/DL Calcium Level 8.7 MG/DL 8.3 MG/DL Magnesium Level 2.1 MG/DL Blood Gas Liter Flow 1 L/M White Blood Count 10.4 TH/MM3 Red Blood Count 4.31 MIL/MM3 Hemoglobin 14.0 GM/DL Hematocrit 42.3 % Mean Corpuscular Volume 98.2 FL Mean Corpuscular Hemoglobin 32.5 PG Mean Corpuscular Hemoglobin 33.1 % Concent Red Cell Distribution Width 14.2 % Platelet Count 173 TH/MM3 Mean Platelet Volume 9.2 FL Total Bilirubin 0.4 MG/DL Direct Bilirubin 0.1 MG/DL Indirect Bilirubin 0.3 MG/DL Aspartate Amino Transf 61 U/L (AST/SGOT) Alanine Aminotransferase 105 U/L (ALT/SGPT) Alkaline Phosphatase 91 U/L B-Type Natriuretic Peptide 2529 PG/ML Total Protein 6.0 GM/DL Albumin 2.8 GM/DL Imaging Last Impressions Chest X-Ray 10/18/16 0832 Signed Impressions: Service Date/Time: Tuesday, October 18, 2016 08:40 - CONCLUSION: Hyperinflated lungs with some suspected atelectasis at the bases. The heart size is enlarged. John Trevino MD Assessment and Plan Problem List: (1) CHF (congestive heart failure) Assessment and Plan: will get an echo, likely acute diastolic chf w/ cocaine use; seems near compensated and cr. bumped up slightly, changed to PO after this am's IV dose. (2) Hypertension Assessment and Plan: given cocaine use, stopped BB, added losartan and amlodipine (3) Tobacco abuse Assessment and Plan: counseled at length (4) Cocaine abuse Assessment and Plan: counseled at length (5) Cardiomyopathy Assessment and Plan: ef 30-35% last year, w/ ongoing drug abuse and non- compliance do not consider him an AICD candidate. added losartan but stopped BB due to cocaine use. echo pending but unlikely to change current mgt. Assessment and Plan will be available as needed,please call with questions. Problem Qualifiers (1) CHF (congestive heart failure): Qualified Code: I50.31 - Acute diastolic congestive heart failure Heber Luna MD Oct 19, 2016 09:12
[2016-10-19] MEDS: LOSARTAN 50 MG TAB PO SCH (12:48)
[2016-10-19] MEDS: amLODIPine BESYLATE 5 MG TAB PO SCH (12:48)
[2016-10-19] MEDS: ENOXAPARIN SODIUM 40 MG/0.4 ML SYRINGE SQ SCH (13:24)
--- NOTE | 2016-10-19 15:28 | EKG ---
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
--- NOTE | 2016-10-19 15:30 | EKG ---
Date Performed: 10/18/2016 Time Performed: 11:23:24 PTAGE: 71 years EKG: SINUS TACHYCARDIA WITH OCCASIONAL VENTRICULAR PREMATURE COMPLEXES LEFT ATRIAL ENLARGEMENT R IGHT BUNDLE BRANCH BLOCK LEFT VENTRICULAR HYPERTROPHY AND ST-T CHANGE INFERIOR MYOCARDIAL INFARCTION Compared to the PREVIOUS TRACING the patient has developed sinus tachycardia. He continues to have crite jovita for an inferior wall infarct of indeterminate age but it was noted on prior ekg and the finding m ay just be secondary to the conduction disturbance. There has been an increase in the lateral ST segm ent changes. Clinical correlation will be important. PREVIOUS TRACIN10/18/2016 08.31 DOCTOR: Lula Brown Interpretating Date/Time 10/19/2016 15:28:51
--- NOTE | 2016-10-19 15:41 | EC ---
Study Study Date:10/19/2016 STUDY CONCLUSIONS SUMMARY - Left ventricle: The cavity size was moderately dilated. Wall thickness was normal. Systolic function was severely reduced. The estimated ejection fraction was in the range of 25% to 30%. Diffuse hypokinesis. - Mitral valve: Moderate to severe regurgitation. - Left atrium: The atrium was moderately dilated. - Right ventricle: The cavity size was mildly dilated. - Right atrium: The atrium was mildly dilated. - Tricuspid valve: Moderate regurgitation. - Pulmonary arteries: PA peak pressure: 48mm Hg (S). If LV function is below 40, please consider prescribing an ACEI or ARB or document rationale for non-use. PROCEDURE DATA STUDY STATUS: Elective. Procedure: Transthoracic echocardiography. Image quality was good. Scanning was performed from the parasternal, apical, and subcostal acoustic windows. Study completion: The patient tolerated the procedure well. Transthoracic echocardiography. M-mode, complete 2D, complete spectral Doppler, and color Doppler. Height: Height: 75in. Weight: Weight: 175.6lb. Body mass index: BMI: 22kg/m^2. Body surface area: BSA: 2.08m^2. Patient status: Inpatient. CARDIAC ANATOMY LEFT VENTRICLE: The cavity size was moderately dilated. Wall thickness was normal. There was no hypertrophy. Systolic function was severely reduced. The estimated ejection fraction was in the range of 25% to 30%. Diffuse hypokinesis. AORTIC VALVE: Trileaflet. Doppler: There was no stenosis. No significant regurgitation. Valve area: 1.74cm^2(VTI). Indexed valve area: 0.84cm^2/m^2 (VTI). Valve area: 2.21cm^2 (Vmax). Indexed valve area: 1.06cm^2/m^2 (Vmax). Mean gradient: 3mm Hg (S). MITRAL VALVE: The valve appears to be grossly normal. Doppler: There was no evidence for stenosis. Moderate to severe regurgitation. Peak gradient: 4mm Hg (D). LEFT ATRIUM: The atrium was moderately dilated. ATRIAL SEPTUM: No defect or patent foramen ovale was identified. RIGHT VENTRICLE: The cavity size was mildly dilated. Systolic function was normal. PULMONIC VALVE: Not well visualized. Doppler: There was no evidence for stenosis. No significant regurgitation. TRICUSPID VALVE: The valve appears to be grossly normal. Doppler: There was no evidence for stenosis. Moderate regurgitation. RIGHT ATRIUM: The atrium was mildly dilated. PERICARDIUM: There was no pericardial effusion. Patient weight: 175.6lb _Ejection fraction:_ 65-75% _Fractional shortening:_ 32% up to 5Kg 5-11.5Kg 11.6-22.9Kg 23-45Kg 45-57Kg Aortic Root 7-13 <17 13-22 17-27 17-27 LA diam 6-13 <23 24-38 33-47 37-40 RVID 10-17 7-15 7-15 7-18 8-17 LVIDd 12-22 <32 24-38 33-47 37-40 LVPW 2-4 3-6 5-7 6-8 7-8 IVS 2-4 3-6 5-7 6-8 7-8 BASIC MEASUREMENTS ADULT NORMAL Left ventricle LV internal dimension, ED, chordal *68.8 mm 43-52 level, PLAX LV internal dimension, ES, chordal *61.3 mm 23-38 level, PLAX Fractional shortening, chordal level, *11 % >29 PLAX LV posterior wall thickness, ED 9.53 mm IVS/LVPW ratio, ED 1 <1.3 Volume, ED, MOD, 1-plane 282 ml Volume, ES, MOD, 1-plane 225 ml Ejection fraction, MOD, 1-plane 20 % Stroke volume, MOD, 1-plane 57 ml Volume index, ED, MOD, 1-plane 136 ml/m^2 Volume index, ES, MOD, 1-plane 108 ml/m^2 Stroke index, MOD, 1-plane 27.4 ml/m^2 Volume, ED, MOD, 2-plane 290 ml Volume, ES, MOD, 2-plane 229 ml Ejection fraction, MOD, 2-plane 21 % Stroke volume, MOD, 2-plane 61 ml Volume index, ED, MOD, 2-plane 139 ml/m^2 Volume index, ES, MOD, 2-plane 110 ml/m^2 Stroke index, MOD, 2-plane 29.3 ml/m^2 Ventricular septum Septal thickness, ED 9.53 mm Aortic valve Leaflet separation 21 mm 15-26 Aorta Root diameter, ED 33 mm Left atrium Anterior-posterior dimension 42 mm Anterior-posterior dimension index 2.02 cm/m^2 <2.2 BASIC MEASUREMENTS ADULT NORMAL Aortic valve Leaflet separation 21 mm 15-26 DOPPLER MEASUREMENTS ADULT NORMAL Main pulmonary artery Pressure, S *48 mm Hg =30 Aortic valve Peak velocity, S 111 cm/s Mean velocity, S 82.6 cm/s VTI, S 20.5 cm Mean gradient, S 3 mm Hg Valve area, VTI 1.74 cm^2 Valve area index, VTI 0.84 cm^2/m^2 Valve area, Vmax 2.21 cm^2 Valve area index, Vmax 1.06 cm^2/m^2 Mitral valve Peak E-wave velocity 104 cm/s Peak A-wave velocity 44.9 cm/s Deceleration time *148 ms 150-230 Peak gradient, D 4 mm Hg Peak E/A ratio 2.3 Tricuspid valve Regurgitant peak velocity 311 cm/s Peak RV-RA gradient, S 39 mm Hg Maximal regurgitant velocity 311 cm/s Systemic veins Estimated CVP 10 mm Hg Right ventricle RV pressure, S *49 mm Hg <30 Pulmonic valve Peak velocity, S 43.6 cm/s LEGEND: Mean values are shown as u=mean value. Asterisk (*) zavala values outside specified normal range. Prepared and signed by Daniel Jeong [id number]
[2016-10-19] MEDS ORDERED: AMLO5 PO (15:57)
[2016-10-19] MEDS ORDERED: FURO20TA PO (15:57)
[2016-10-19] MEDS ORDERED: COZA50TA PO (15:57)
[2016-10-20] VITALS (10 sets, daily range): BP systolic 134–152; BP diastolic 68–99; PULSE 77–135; RESP 20–23; TEMP 97.2–98; O2SAT 93–99
[2016-10-20] MEDS: RESP: ALBUTEROL 2.5 MG/IPRATROPIUM 0.5 MG NEB (SCH) INH ×6 (04:20→23:35)
[2016-10-20] MEDS: INSULIN NovoLIN REGULAR SUPPLEMENTAL SCALE SQ SCH ×3 (06:00→16:37)
[2016-10-20 06:19] LABS: HEMATOCRIT 43.2 % (39.0-51.0); MEAN CELL VOLUME 98.2 FL (80.0-100.0); MEAN CORPUSCULAR HEMOGLOBIN 32.1 PG (27.0-34.0); MEAN CORPUSCULAR HGB CONC 32.7 % (32.0-36.0); PLATELET COUNT 181 TH/MM3 (150-450); RED CELL DISTRIBUTION WIDTH 14.5 % (11.6-17.2); REVIEW FLAG FINAL; WHITE BLOOD COUNT 7.1 TH/MM3 (4.0-11.0)
[2016-10-20 06:33] LABS: BICARBONATE 28.7 MEQ/L (21.0-32.0); POTASSIUM 4.1 MEQ/L (3.5-5.1)
[2016-10-20] MEDS: ASPIRIN 325 MG TAB PO SCH (08:48)
[2016-10-20] MEDS: FUROSEMIDE 20 MG TAB PO SCH (08:49)
[2016-10-20] MEDS: LOSARTAN 50 MG TAB PO SCH (08:49)
[2016-10-20] MEDS: amLODIPine BESYLATE 5 MG TAB PO SCH (08:49)
[2016-10-20] MEDS: SODIUM CHLORIDE 0.9% FLUSH 5 ML FLUSH IVF PRN (08:50)
[2016-10-20] MEDS: ENOXAPARIN SODIUM 40 MG/0.4 ML SYRINGE SQ SCH (12:11)
--- NOTE | 2016-10-20 14:10 | HHI.PR ---
Subjective Remarks had 5 runs of VT this am- asymptomatic on telemetry throwing PVCs no chest pains or shortness of breath Objective Vitals Vital Signs Date Time Temp Pulse Resp B/P Pulse Ox O2 Delivery O2 Flow Rate FiO2 10/20/16 12:00 97.4 86 23 152/68 96 10/20/16 09:51 94 10/20/16 08:50 Room Air 1.00 10/20/16 08:00 97.2 86 21 134/96 99 10/20/16 07:20 135 10/20/16 04:00 98.0 82 20 140/99 97 10/20/16 04:00 Room Air 10/20/16 00:00 97.5 83 20 148/95 97 10/20/16 00:00 Room Air 10/19/16 21:44 91 10/19/16 20:00 Room Air 10/19/16 20:00 98.2 87 19 122/74 94 10/19/16 19:57 77 10/19/16 19:55 92 10/19/16 18:08 80 10/19/16 16:00 97.3 53 17 141/82 95 10/19/16 15:52 98 Nasal Cannula 1.00 I/O 10/19/16 10/19/16 10/19/16 10/20/16 10/20/16 10/20/16 07:00 15:00 23:00 07:00 15:00 23:00 Intake Total 240 ml 480 ml 450 ml 360 ml Output Total 300 ml 1125 ml 600 ml 700 ml Balance -60 ml -645 ml -150 ml -340 ml Intake Oral 240 ml 480 ml 450 ml 360 ml Output Urine Total 300 ml 1125 ml 600 ml 700 ml Result Diagram: 10/20/16 0520 10/20/16 0520 Imaging Last Impressions Chest X-Ray 10/19/16 0600 Signed Impressions: Service Date/Time: Wednesday, October 19, 2016 01:47 - CONCLUSION: Persistent cardiac silhouette enlargement. Lungs grossly clear. Ivan Elizalde MD Objective Remarks awake and alert, NAD anicteric lungs decrease breath sounds bases, no rales or wheezes sinus with PVCS frequent abdomen soft, nontender, good bowel sounds extremities no edema neuro exam- non focal A/P Assessment and Plan 1. Acute Hypoxic Respiratory Failure- from CHF - resolved - ff 02 sat- - good sats at rooma ir 2. Systolic CHF exacerbation- check EF 20-30% on echo HY[ertension some elevated SBPs PVS, short runs of VT- asymptomatic 10/20 -- Lasix 40mg daily. electrolytes good -- add BB coreg 6.25 mg po bid- d/w him importance of stopping cocaine- "no more " -- goal net negative 2-3L over the next 24h - Cardiology ff- Dr. Luna -Increase activity gradually 3. Hypertension --added Coreg for above -- continue on ARB -- prn hydralazine, labetalol for goal sbp < 160 4. COPD -- home inhalers -doubt this is COPD exacerbation 5. Lactic acidosis- resolved -- likely early congestive hepatopathy and cardiogenic shock. 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 7. Hyperlipidemia -- statin- ff LFTs 8. SCDs and Lovenox for DVT prophylaxis. Increaese 9. substance abuse- counselled DC in am if no further episodes Donny Ferrera MD Oct 20, 2016 14:10
[2016-10-20] MEDS: CARVEDILOL 6.25 MG TAB PO SCH ×2 (14:59→21:56)
[2016-10-21] VITALS (11 sets, daily range): BP systolic 130–156; BP diastolic 82–109; PULSE 67–96; RESP 16–20; TEMP 97.4–98.4; O2SAT 93–100
[2016-10-21] MEDS: RESP: ALBUTEROL 2.5 MG/IPRATROPIUM 0.5 MG NEB (SCH) INH ×5 (03:00→21:00)
[2016-10-21] MEDS: LOSARTAN 50 MG TAB PO SCH (08:50)
[2016-10-21] MEDS: CARVEDILOL 6.25 MG TAB PO SCH (08:50)
[2016-10-21] MEDS: ASPIRIN 325 MG TAB PO SCH (08:50)
[2016-10-21] MEDS: amLODIPine BESYLATE 5 MG TAB PO SCH (08:50)
[2016-10-21] MEDS: FUROSEMIDE 20 MG TAB PO SCH (08:50)
--- NOTE | 2016-10-21 11:33 | HHI.PR ---
Subjective Remarks no complains on telemetry- with some sinus pauses heart rates- dips to 40s then with some PVC then goes into a fib RVR- asymptomatic Objective Vitals Vital Signs Date Time Temp Pulse Resp B/P Pulse Ox O2 Delivery O2 Flow Rate FiO2 10/21/16 08:00 97.4 67 16 156/109 99 10/21/16 08:00 95 Nasal Cannula 6.00 10/21/16 04:00 98.0 77 20 145/99 94 10/21/16 00:00 97.4 70 20 131/82 98 10/20/16 21:55 Room Air 10/20/16 20:15 82 10/20/16 20:00 97.5 77 20 142/87 93 10/20/16 19:43 95 21 10/20/16 16:00 98.0 83 20 152/95 97 10/20/16 12:00 97.4 86 23 152/68 96 I/O 10/20/16 10/20/16 10/20/16 10/21/16 10/21/16 10/21/16 07:00 15:00 23:00 07:00 15:00 23:00 Intake Total 360 ml 480 ml 280 ml 340 ml Output Total 700 ml 700 ml 1000 ml 1000 ml Balance -340 ml -220 ml -720 ml -660 ml Intake Oral 360 ml 480 ml 280 ml 340 ml Output Urine Total 700 ml 700 ml 1000 ml 1000 ml # Bowel Movements 0 1 Result Diagram: 10/20/16 0520 10/20/16 0520 Imaging Last Impressions Chest X-Ray 10/19/16 0600 Signed Impressions: Service Date/Time: Wednesday, October 19, 2016 01:47 - CONCLUSION: Persistent cardiac silhouette enlargement. Lungs grossly clear. Ivan Elizalde MD Objective Remarks awake and alert, NAD anicteric lungs decrease breath sounds bases, no rales or wheezes sinus - HR- 50s abdomen soft, nontender, good bowel sounds extremities no edema neuro exam- non focal A/P Assessment and Plan 1. Acute Hypoxic Respiratory Failure- from CHF - resolved - sat- - good sats 2. Systolic CHF exacerbation- check EF 20-30% on echo HYpertension some elevated SBPs Arrhythmia- - Intermittent A fib- with pause PVS, short runs of VT- asymptomatic 10/20 Telemetry reviewed- episodes of ari- pauses- 40s- then episodes of a fib 140s -- Lasix 40mg daily. electrolytes good -- startd BB coreg 6.25 mg po bid-10/20 d/w him importance of stopping cocaine- "no more"- - DC Coreg with ari/arrhythmias overnight - Cardiology ff- Dr. Luna- will d/w-options - need for AICD/PM- not deemed a good candidate previous notes. continue to monitor on telemetry - Increase activity gradually 3. Hypertension --added Coreg for above- held for bradycarda -- continue on ARB. Increase amlodipine -- prn hydralazine, labetalol for goal sbp < 160 4. COPD -- home inhalers -doubt this is COPD exacerbation 5. Lactic acidosis- resolved -- likely early congestive hepatopathy and cardiogenic shock. 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 7. Hyperlipidemia -- statin- ff LFTs 8. SCDs and Lovenox for DVT prophylaxis. 9. substance abuse- counselled Increase activity add: d/w Cardiology- regarding ari- overnight- asymtpomatic telemetry goes into NSVT- asymoptomatic we will restart coreg at 3.125 mg po bid and monitor Donny Ferrera MD Oct 21, 2016 11:33
[2016-10-21] MEDS: ENOXAPARIN SODIUM 40 MG/0.4 ML SYRINGE SQ SCH (13:01)
[2016-10-21] MEDS: CARVEDILOL 3.125 MG TAB PO SCH (20:41)
[2016-10-22] VITALS (14 sets, daily range): BP systolic 145–154; BP diastolic 84–117; PULSE 64–99; RESP 16–20; TEMP 97.4–98.6; O2SAT 93–97
[2016-10-22] MEDS: RESP: ALBUTEROL 2.5 MG/IPRATROPIUM 0.5 MG NEB (SCH) INH ×3 (00:31→07:47)
[2016-10-22] MEDS: ASPIRIN 325 MG TAB PO SCH (08:30)
[2016-10-22] MEDS: FUROSEMIDE 20 MG TAB PO SCH (08:30)
[2016-10-22] MEDS: CARVEDILOL 3.125 MG TAB PO SCH (08:30)
[2016-10-22] MEDS: LOSARTAN 50 MG TAB PO SCH (08:30)
[2016-10-22] MEDS ORDERED: hydrALAZINE HCL 25 MG TAB PO SCH (09:00)
[2016-10-22] MEDS ORDERED: hydrALAZINE HCL 10 MG TAB PO SCH (09:00)
[2016-10-22] MEDS ORDERED: amLODIPine BESYLATE 5 MG TAB PO SCH (09:00)
--- NOTE | 2016-10-22 09:10 | HHI.PR ---
Subjective Remarks overnight- telemetry in SR 70s, no arrhythmias patient up and ambulating with no shortness of breath or chest pains- patient paced himself as tolerated no PND, slept well overnight Objective Vitals Vital Signs Date Time Temp Pulse Resp B/P Pulse Ox O2 Delivery O2 Flow Rate FiO2 10/22/16 07:37 93 21 10/22/16 07:24 Room Air 10/22/16 06:00 84 10/22/16 05:00 82 10/22/16 04:00 97.4 77 20 148/94 97 10/22/16 04:00 72 10/22/16 03:00 86 10/22/16 02:00 72 10/22/16 01:00 84 10/22/16 00:00 74 10/22/16 00:00 98.6 74 20 150/84 97 10/22/16 00:00 95 Room Air 10/21/16 22:00 74 10/21/16 21:01 93 21 10/21/16 21:00 96 10/21/16 20:00 72 10/21/16 19:57 98 Room Air 10/21/16 19:55 98.4 84 20 140/92 98 10/21/16 19:00 84 10/21/16 16:00 97.9 69 16 148/93 100 10/21/16 12:00 97.9 76 16 130/84 94 I/O 10/21/16 10/21/16 10/21/16 10/22/16 10/22/16 10/22/16 07:00 15:00 23:00 07:00 15:00 23:00 Intake Total 340 ml 960 ml 360 ml Output Total 1000 ml 1150 ml 550 ml Balance -660 ml -190 ml -190 ml Intake Oral 340 ml 960 ml 360 ml Output Urine Total 1000 ml 1150 ml 550 ml # Bowel Movements 1 0 0 Result Diagram: 10/20/1651910/20/16519 Imaging Last Impressions Chest X-Ray 10/19/16 06 Signed Impressions: Service Date/Time: Wednesday, October 19, 2016 01:47 - CONCLUSION: Persistent cardiac silhouette enlargement. Lungs grossly clear. Ivan Elizalde MD Objective Remarks awake and alert, NAD anicteric lungs decrease breath sounds bases, no rales or wheezes sinus - 70s abdomen soft, nontender, good bowel sounds extremities no edema neuro exam- non focal A/P Assessment and Plan 1. Acute Hypoxic Respiratory Failure- from CHF - resolved - ff 02 sat- - good sats at room air 2. Systolic CHF exacerbation- check EF 20-30% on echo HYpertension better Arrhythmia- - Intermittent A fib- with pause- now in SR overnight PVS, short runs of VT- asymptomatic 10/20 Telemetry reviewed- episodes of ari- pauses- 40s- then episodes of a fib 140s -- Lasix 40mg daily. electrolytes good -- Coreg decrease to 3.125 mg po bid- due to ari - Cardiology ff- Dr. Luna- will d/w-options - need for AICD/PM- not deemed a good candidate previous notes. continue to monitor on telemetry - Increase activity gradually 3. Hypertension -- continue on ARB. amlodipine -- prn hydralazine, l- added 10 mg po tid 4. COPD -- home inhalers -doubt this is COPD exacerbation 5. Lactic acidosis- resolved -- likely early congestive hepatopathy and cardiogenic shock. 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 7. Hyperlipidemia -- statin- ff LFTs 8. SCDs and Lovenox for DVT prophylaxis. 9. substance abuse- counselled Activity as tolerated reinforced discontinuation of cocaine use DC home today- FF up with PCP- Dr. Wong FF up with Dr. Luna as OP d/w patient at length Donny Ferrera MD Oct 22, 2016 09:10 Donny Ferrera MD Oct 22, 2016 09:10
[2016-10-22] MEDS ORDERED: HYDR10TA23 PO (09:15)
[2016-10-22] MEDS ORDERED: AMLO5 PO (09:15)
[2016-10-22] MEDS ORDERED: CARV3.125 PO (09:15)
[2016-10-22] MEDS ORDERED: LOSA100T PO (10:43)
[2016-10-22] MEDS ORDERED: FURO1TAB62 PO (10:44)
--- NOTE | 2016-10-22 10:46 | HHI.DS ---
Discharge Summary Admission Date Oct 18, 2016 at 10:44 Discharge Date: Oct 22, 2016 Admitting Diagnosis SIRS, NSTEMI (1) CHF (congestive heart failure) ICD Code: I50.9 Procedures none Brief History - From Admission 71yM with history of ischemic cardiomyopathy and an EF of 30-35% who has been repeatedly admitted to [facility] before for CHF exacerbation presents with a few weeks of progressively worsening shortness of breath. He denies fever, chills, chest pain, nausea, vomiting, diarrhea. He is quite dyspneic and currently on BiPAP, so a complete history is unobtainable. He was lost to follow-up after his last CHF exacerbation and does not have repeat echo for possible AICD work-up. Work-up in the ED include Cr. 1.2, Lactate 2.2, AST/ALT 184/198, Trop 0.11, BNP 2456, wbc 4.3, hgb 15. He received 1 L fluid bolus for early concern for possible sepsis. Critical care medicine is consulted to evaluate and manage his Type II respiratory failure and respiratory distress. CBC/BMP: 10/20/16 0520 10/20/16 0520 Significant Findings Laboratory Tests Test 10/20/16 05:20 Red Blood Count 4.40 MIL/MM3 (4.50-5.90) Blood Urea Nitrogen 23 MG/DL (7-18) Estimat Glomerular Filtration 72 ML/MIN (>89) Rate Random Glucose 128 MG/DL (74-106) Imaging Last Impressions Chest X-Ray 10/19/16 0600 Signed Impressions: Service Date/Time: Wednesday, October 19, 2016 01:47 - CONCLUSION: Persistent cardiac silhouette enlargement. Lungs grossly clear. Ivan Elizalde MD PE at Discharge awake and alert, NAD anicteric lungs decrease breath sounds bases, no rales or wheezes sinus - 70s abdomen soft, nontender, good bowel sounds extremities no edema neuro exam- non focal Pt update on day of discharge sinus rhythm afebrile,comfortable, good sats lungs no rales Hospital Course 1. Acute Hypoxic Respiratory Failure- from CHF - resolved - ff sat- - good sats at room air 2. Systolic CHF exacerbation- check EF 20-30% on echo HYpertension better Arrhythmia- - Intermittent A fib- with pause- now in SR overnight PVS, short runs of VT- asymptomatic 10/20 Telemetry reviewed- episodes of ari- pauses- 40s- then episodes of a fib 140s -- Lasix 40mg daily. electrolytes good -- Coreg decrease to 3.125 mg po bid- due to ari - Cardiology ff- Dr. Luna- will d/w-options - need for AICD/PM- not deemed a good candidate previous notes. continue to monitor on telemetry - Increase activity gradually 3. Hypertension -- continue on ARB. amlodipine -- prn hydralazine, l- added 10 mg po tid 4. COPD -- home inhalers -doubt this is COPD exacerbation 5. Lactic acidosis- resolved -- likely early congestive hepatopathy and cardiogenic shock. after diuresis, will recheck 6. Elevated LFTs- likely from [employer] -- likely early congestive hepatopathy. 7. Hyperlipidemia -- statin- ff LFTs 8. SCDs and Lovenox for DVT prophylaxis. 9. substance abuse- counselled Activity as tolerated reinforced discontinuation of cocaine use DC home today- FF up with PCP- Dr. Wong FF up with Dr. Luna as OP Pt Condition on Discharge: Stable Discharge Disposition: Discharge Home Discharge Time: <= 30 minutes Discharge Instructions DIET: Follow Instructions for: Heart Healthy Diet Speech Therapy-Diet Recommends: Regular Activities you can perform: Weight Bearing as Ira Activities to Avoid: Prolonged Standing, Strenuous Activity Follow up Referrals: Cardiology with Heber Luna MD PCP Follow-up - 10/26/16 with [facility] New Medications: Furosemide (Lasix) 20 Mg Tab 20 MG PO DAILY CMP Days 30 Ref 0 TAB Losartan (Losartan) 100 Mg Tab 100 MG PO DAILY htn Days 30 Ref 0 TAB Amlodipine (Norvasc) 5 Mg Tab 10 MG PO DAILY HTN Days 30 TAB Carvedilol (Coreg) 3.125 Mg Tab 3.125 MG PO Q12HR CMP/aRR Days 30 TAB Hydralazine (Hydralazine) 10 Mg Tab 10 MG PO Q8H HTN Days 30 TAB Donny Ferrera MD Oct 22, 2016 10:46
== END 2016-10-22 11:21 | disposition home or self-care (01) | DRG 291 ==
LOC: NEPC 08:14 → NEDA 10:44 → HIMW 14:15 → HCPC 10-19 13:53 → HCIN 10-21 18:22
PROVIDERS: ADMIT Internal Medicine; ATTEND Internal Medicine
PROC: 5A09357 Assistance with Respiratory Ventilation, Less than 24 Consecutive Hours, Continuous Positive Airway Pressure (ICD-10-PCS; principal; 2016-10-21)
DX: I50.23 Acute on chronic systolic (congestive) heart failure (principal); R57.0 Cardiogenic shock; J96.01 Acute respiratory failure with hypoxia; E87.2 Acidosis; I45.10 Unspecified right bundle-branch block; I25.5 Ischemic cardiomyopathy; I49.3 Ventricular premature depolarization; I48.91 Unspecified atrial fibrillation; I10 Essential (primary) hypertension; M19.042 Primary osteoarthritis, left hand; M19.041 Primary osteoarthritis, right hand; M17.0 Bilateral primary osteoarthritis of knee; R09.82 Postnasal drip; R09.81 Nasal congestion; F14.10 Cocaine abuse, uncomplicated; K76.1 Chronic passive congestion of liver; R74.0 Nonspecific elevation of levels of transaminase and lactic acid dehydrogenase [LDH]; J44.9 Chronic obstructive pulmonary disease, unspecified; E78.5 Hyperlipidemia, unspecified; Z91.19 Patient's noncompliance with other medical treatment and regimen; Z86.73 Personal history of transient ischemic attack (TIA), and cerebral infarction without residual deficits
CPT/HCPCS: 36600; 71010; 80048; 80053; 80076; 81001; 82550; 82552; 82805; 82948; 83605; 83735; 83880; 84484; 85025; 85027; 85610; 85730; 87040; 87804; 93005; 93306; 94002; 94150; 94620; 94640; 94664; 94667; 94668; 96361; 96365; 96375; J0360; J0456; J0696; J1650; J1940; J2930; J7030; J7050